=== PATIENT | female | born 1970 | race Two or more races ===

== ENCOUNTER 2022-09-06 10:14 | Day surgery (SDC) | payer OTHER ==
[2022-09-06] MEDS ORDERED: KETO10TA2 PO (15:32)
[2022-09-06] MEDS ORDERED: TYLENOL ARTHRI650 MG PO (15:32)
[2022-09-06] MEDS ORDERED: MIRALAX17 GM PO (15:32)
[2022-09-06] MEDS ORDERED: TRAMADOL HCL50 MG PO (15:32)
== END 2022-09-06 17:45 | disposition home or self-care (01) ==
LOC: CIR.AMB 10:14
PROVIDERS: ATTEND Surgery
DX: K42.0 Umbilical hernia with obstruction, without gangrene (principal)